=== PATIENT | female | born 1985 | race Caucasian/White ===

== ENCOUNTER 2022-12-12 15:25 | Inpatient (IN) | payer BC ==
--- OUTSIDE RECORDS SUMMARY | 2022-12-12 15:27 | XMS REPORT | Continuity of Care Document ---
:1985 Author Organization [facility] t Address [address] [place] [address] Care Team Providers Name Role Phone Unavailable Unavailable Unavailable Payers Payer Name Policy Type Policy Number Effective Date Expiration Date S ource Problems This patient has no known problems. Allergies, Adverse Reactions, Alerts Allergy Allergy Status Severity Reaction(s) Onset Inactive Treating Comm ents Source Name Type Date Date Clinician deedee SERRATO Active SV 2018-0 [facility] [place] Medications This patient has no known medications. Procedures This patient has no known procedures. Results Test Description Test Time Test Comments Results Result Comments Source [facility] 2019-05-17 TRIMESTER 08:10:00 RUN DATE: 05/17/19 [facility] PAGE 1 RUN TIME: 1829 Specimen Inquiry RUN USER: INTERFACE PAT IENT: JERMAIN MILES [facility] #: [id number] LOC: LAZARO #: [id number] AGE/SX: 34/F ROOM: [facility] RE05/10/19REG DR: Yessenia Cheema III, MD : 87 BED: A DIS: 05/13/19 STATUS: DIS IN TLOC: SPEC #: [id number] RECD: 05/10/19 STATUS: LESLY RAPHAEL #: [id number] FER: 05/10/19- SUBM DR: Yessenia Cheema III, MD ENTERED: 05/11/19 SP TYPE: PLACIII OTHR DR: ORDERED: LEVEL V SURGICA CODES: [id number] - PLACENTA, NOS PROCEDURES: LEVEL V SURGICA (Incomplete) TISSUES: PLACENTA, NOS - PLACENTA CLINICAL HISTORY 34 year old, 39.2 weeks, [id number], repeat section, complete placental previa (kr) FINAL DIAGNOSIS Placenta, srinivasan gestation: - term placenta - mild increase in perivillous fibrinoid - umbilical cord: paramarginal insertion, 3-vessel, 30 cm length - decreased placental weight: actual 370 gm/expected mean weight 519 gm (less than 10th percentile for gestational age) Tissue code: 1 CPT Code: 08040 cds/kr dt: 05/17/19 GROSS DESCRIPTION The specimen was received in a container, labeled with the patient's name, unit number and designated "placenta". The following attributes are observed: Cord insertion: 1 cm from margin Cord length: 30 cm Number of vessels: 3 Cord color: Murillo Other cord findings: Slightly edematous surface findings: Steel blue, wrinkled, glistening with focal subchorionic fibrin deposition Vasculature: Displays unremarkable blood vasculature Membranes rupture site: Marginal Membrane color: Murillo Other membrane findings: Thickened The trimmed placental weight: 370 gm CONTINUED ON NEXT PAGE RUN DATE: 05/17/19 [facility] PAGE 2 RUN TIME: 1829 Specimen Inquiry RUN USER: INTERFACE OMAR C #: [id number] PATIENT: JERMAIN MILES #[id number] (Continued)-------- -------- GROSS DESCRIPTION (Continued) Disk measurement: 15 x 15 x 3 cm in greatest dimension Accessory lobes: None Maternal surface: Lobulated and intact Parenchyma: Red, beefy, and spongy with peripheral fibrosis Parenchyma lesions: None Cassettes: A1 through A4 alyx/kr 05/11/19 @ 1237 MICROSCOPIC DESCRIPTION Villous architecture is late third trimester consistent with a term placenta. There is a mild increase in perivillous fibrinoid. kathya/kr dt: 05/17/19 --- Signed Juan Wheeler Frankie 05/17/19 0810 END OF REPORT HGB HCT 2019-05-11 09:25:00 Test Item Value Reference Range Interpretation Comme nts HEMOGLOBIN (test code = HGB) 8.7 g/dL 10.7-13.9 L Results verified by repeat analysis HEMATOCRIT (test code = HCT) 28.9 % 32.1-42.1 L CBC W/AUTO [id number] 08:54:00 Test Item Value Reference Range Interpretation Comments WHITE BLOOD CELL (test code = WBC) 9.0 K/mm3 6.6-12.1 N RED BLOOD CELL (test code = RBC) 4.72 M/mm3 3.45-5.01 N HEMOGLOBIN (test code = HGB) 10.9 g/dL 10.7-13.9 N HEMATOCRIT (test code = HCT) 35.3 % 32.1-42.1 N MEAN CELL VOLUME (test code = MCV) 75 fL 84.1-94.8 L MEAN CELL HGB (test code = MCH) 23.1 pg 27-35 L MEAN CELL HGB CONCETRATION (test 30.9 gm/dL 32.2-34.1 L code = MCHC) RED CELL DISTRIBUTION WIDTH (test 17.1 % 12.4-16.5 H code = RDW) PLATELET COUNT (test code = PLT) 204 K/mm3 133-385 N IMMATURE PLATELET FRACTION (test 0.0 % 0.0-10.8 N code = IPF) MEAN PLATELET VOLUME (test code = 11.2 fl 9.1-12.7 N MPV) NEUTROPHIL % (test code = NT%) 78.0 % 56.5-79.4 N LYMPHOCYTE % (test code = LY%) 13.2 % 14.3-34.3 L MONOCYTE % (test code = MO%) 6.3 % 5.1-10.4 N EOSINOPHIL % (test code = EO%) 1.5 % 0.1-3.0 N BASOPHIL % (test code = BA%) 0.3 % 0.1-1.0 N NEUTROPHIL # (test code = NT#) 7.1 K/mm3 LYMPHOCYTE # (test code = LY#) 1.2 K/mm3 MONOCYTE # (test code = MO#) 0.6 K/mm3 EOSINOPHIL # (test code = EO#) 0.14 K/mm3 BASOPHIL # (test code = BA#) 0.0 K/mm3 RBC MORPHOLOGY REQUIRED (test code NORMAL NORMAL = RBCM) PLATELET MORPHOLOGY REQUIRED (test NORMAL NORMAL code = PLTMR) AG HEPATITIS B [id number] 13:28:00 Test Item Value Reference Range Interpretation Comments AG HEPATITIS B SURFACE (test code NONREACTIVE NONREACTIVE = HBSAG) IS CONSENT FORM SIGNED FOR HIV TESTING? YAB HEPATITIS C [id number] 13:28:00 Test Item Value Reference Range Interpretation Comments AB HEPATITIS C (test code = NONREACTIVE NONREACTIVE HCVAB) SIGNAL TO CUTOFF (test code = 0.08 <0.80 N CUTOFF) IS CONSENT FORM SIGNED FOR HIV TESTING? YAB [id number] 13:28:00 Test Item Value Reference Range Interpretation Comments AB TREPONEMA (test code = TREPAB) NONREACTIVE NONREACTIVE IS CONSENT FORM SIGNED FOR HIV TESTING? YAB HIV 1 13:28:00 Test Item Value Reference Range Interpretation Comments AB HIV 1 2 (test NONREACTIVE NONREACTIVE Done by [facility] code = [id number]) 4th Gen HIV Ag/Ab Combo Screen IS CONSENT FORM SIGNED FOR HIV TESTING? YAG HEPATITIS B [id number] 13:10:00 Test Item Value Reference Range Interpretation Comments AG HEPATITIS B SURFACE (test code NONREACTIVE NONREACTIVE = HBSAG) IS CONSENT FORM SIGNED FOR HIV TESTING? YAB HEPATITIS C [id number] 13:10:00 Test Item Value Reference Range Interpretation Comments AB HEPATITIS C (test code = HCVAB) NONREACTIVE SIGNAL TO CUTOFF (test code = CUTOFF) <0.80 IS CONSENT FORM SIGNED FOR HIV TESTING? YAB [id number] 13:10:00 Test Item Value Reference Range Interpretation Comments AB TREPONEMA (test code = TREPAB) NONREACTIVE NONREACTIVE IS CONSENT FORM SIGNED FOR HIV TESTING? YAB HIV 1 13:10:00 Test Item Value Reference Range Interpretation Comments AB HIV 1 2 (test code = [id number]) NONREACTIVE IS CONSENT FORM SIGNED FOR HIV TESTING? YURINALYSIS W/O [id number] 12:20:00 Test Item Value Reference Range Interpretation Comments UA GLUCOSE DIPSTICK (test code = NEGATIVE NEGATIVE DGLUU) UA KETONE DIPSTICK (test code = NEGATIVE NEGATIVE KETU) UA PROTEIN DIPSTICK (test code = NEGATIVE NEGATIVE PROU) IS NURSE PERFORMING TEST? NCBC W/AUTO [id number] 12:12:00 Test Item Value Reference Range Interpretation Comments WHITE BLOOD CELL (test code = WBC) 8.9 K/mm3 6.6-12.1 N RED BLOOD CELL (test code = RBC) 4.73 M/mm3 3.45-5.01 N HEMOGLOBIN (test code = HGB) 11.1 g/dL 10.7-13.9 N HEMATOCRIT (test code = HCT) 35.7 % 32.1-42.1 N MEAN CELL VOLUME (test code = MCV) 76 fL 84.1-94.8 L MEAN CELL HGB (test code = MCH) 23.5 pg 27-35 L MEAN CELL HGB CONCETRATION (test 31.1 gm/dL 32.2-34.1 L code = MCHC) RED CELL DISTRIBUTION WIDTH (test 17.0 % 12.4-16.5 H code = RDW) PLATELET COUNT (test code = PLT) 201 K/mm3 133-385 N IMMATURE PLATELET FRACTION (test 0.0 % 0.0-10.8 N code = IPF) MEAN PLATELET VOLUME (test code = 10.8 fl 9.1-12.7 N MPV) NEUTROPHIL % (test code = NT%) 76.4 % 56.5-79.4 N LYMPHOCYTE % (test code = LY%) 14.7 % 14.3-34.3 N MONOCYTE % (test code = MO%) 6.5 % 5.1-10.4 N EOSINOPHIL % (test code = EO%) 1.2 % 0.1-3.0 N BASOPHIL % (test code = BA%) 0.4 % 0.1-1.0 N NEUTROPHIL # (test code = NT#) 6.8 K/mm3 LYMPHOCYTE # (test code = LY#) 1.3 K/mm3 MONOCYTE # (test code = MO#) 0.6 K/mm3 EOSINOPHIL # (test code = EO#) 0.11 K/mm3 BASOPHIL # (test code = BA#) 0.0 K/mm3 RBC MORPHOLOGY REQUIRED (test code NORMAL NORMAL = RBCM) PLATELET MORPHOLOGY REQUIRED (test NORMAL NORMAL code = PLTMR) - US PREG UT [id number] 10:11:00 Patient Name: JERMAIN MILES Unit No: [id number] EXAMS: CPT CODE: [id number] US PREG UT TRANSVAGINAL [address] [facility] [address], [place] [address] LIMITED OBSTETRICAL ULTRASOUND REPORT Pat. Name: JERMAIN MILES Pat. No: [id number] Study Date: 03/25/2019 9:18am , Age: 04 1985, 33 Pregnancies: 3, Para 2 LMP: 08/15/2018 GA by LMP: 31w5d GA by 1st: 32w5d GA Selected: 32w5d (From Known E) VANESSA: 05/15/2019 Referring MD: Yessenia Cheema Steward Racetrack: Brenda Crawford RDMS CPT4: USPRUTTRVG Admitting MD: Yessenia Cheema Hist/Ind: COMPLETE PREVIA SCAN 3 Cervical Length: 4.8 cm Heart Rate: 131 bpm Amniotic Fluid Index: 13.7cm (08.4-24.4) Q1: 2.0cm Q2: 3.7cm Q3: 4.4cm Q4: 3.7cm MATERNAL ANATOMY Fibroids LxHxW (cm) 1: 2.3 x 1.2 x 2.3 Loc: Anterior Desc: Subserosal Ovaries LxHxW (cm) Right 2.9 x 1.5 x 1.6 Vol: 3.6cc Left 2.8 x1.4 x 1.6 Vol: 3.3cc --------- CLINICAL SUMMARY Type of Gestation: Srinivasan Intrauterine in vertex presentation. motion and organs seen: heart motion seen somatic activity observed body and limb movements seen Regular cardiac rhythm observed Placental location: Posterior Anterior Right lateral Placental maturity : Grade 2 There is COMPLETE (LOWER EDGE WITH VESSELS NOTED) placenta previa. Amniotic fluid volume is normal. Uterus and adnexa: Fibroid seen [facility] NAME: JERMAIN MILES Radiology Department PHYS: Yessenia Sarmiento III, MD [address] : 1985 AGE: 34 SEX: [place] [address] LOC: JorgeRAD PHONE #: [phone] EXAM DATE: 03/25/2019 STATUS: DEP CLI FAX #: [phone] RAD NO: Page 1 Signed Report (CONTINUED) Patient Name: JERMAIN MILES Unit No: [id number] EXAMS: CPT CODE: [id number] US PREG UT TRANSVAGINAL [address]82 (Continued) Thank you for allowing us to participate in the care of this patient. Tone Fiore M.D. Electronic Signature 03/25/2019 10:11am at 1011 Reported and signed by: Lorena Fiore MD CC: Yessenia Cheema III, MD Technologist: Brenda Crawford, [facility] Probe: [id number] Trnscrbd D/ (1011) Oleg Orig Print D/T: S: 03/31/2019 (1306) [facility] NAME: JUDIE MILESA Radiology Department PHYS: Yessenia Sarmiento III, MD [address] : 1985 AGE: 34 SEX: [place] [address] LOC: JorgeRAD PHONE #: [phone] EXAM DATE: 03/25/2019 STATUS: DEP CLI FAX #: [phone] RAD NO: Page 2 Signed Report Patient Name: JERMAIN MILES Unit No: [id number] EXAMS: CPT CODE: [id number] US PREG UT TRANSVAGINAL [address] (Continued) [facility] NAME: JULIETAJERMAIN Hammond Radiology Department PHYS: Yesesnia Sarmiento IIIPA [address] : 1985 AGE: 34 SEX: [place], [place] [address] LOC: JorgeRAD PHONE #: [phone] EXAM DATE: 03/25/2019 STATUS: DEP CLI FAX #: [phone] RAD NO: Page 3 SignedReport- US [id number] 10:11:00 Patient Name: JERMAIN MILES Unit No: [id number] EXAMS: CPT CODE: [id number] [place] L[place] [address] [facility] [address] [place], [place] [address] LIMITED OBSTETRICAL ULTRASOUND REPORT ------ Pat. Name: JERMAIN MILES Pat. No: [id number] Study Date: 03/25/2019 9:18am , Age: 04 1985, 33 Pregnancies: 3, Para 2 LMP:08/15/2018 GA by LMP: 31w5d GA by 1st: 32w5d GA Selected: 32w5d (From Known E) VANESSA: 05/15/2019 Referring MD: Yessenia Cheema Steward [employer]etr[employer]: Brenda Crawford RDMS CPT4: USPREGLTD Admitting MD: Yessenia Cheema Hist/Ind: COMPLETE PREVIA SCAN 3 Cervical Length: 4.8 cm Heart Rate: 131 bpm Amniotic Fluid Index: 13.7cm (08.4- 24.4) Q1: 2.0cm Q2: 3.7cm Q3: 4.4cm Q4: 3.7cm MATERNAL ANATOMY Fibroids LxHxW (cm) 1: 2.3 x 1.2 x 2.3 Loc: Anterior Desc: Subserosal Ovaries LxHxW (cm) Right 2.9 x 1.5 x 1.6 Vol: 3.6cc Left 2.8 x 1.4 x 1.6 Vol: 3.3cc CLINICAL SUMMARY Type of Gestation: Srinivasan Intrauterine in vertex presentation. motion and organs seen: heart motion seen somatic activity observed body and limb movements seen Regular cardiac rhythm observed Placental location: Posterior Anterior Right lateral Placental maturity : Grade 2 There is COMPLETE (LOWER EDGE WITH VESSELS NOTED) placenta previa. Amniotic fluid volume is normal. Uterus and adnexa: Fibroid seen [facility] NAME: JULIETAStephanyJERMAIN Radiology Department PHYS: Yessenia Sarmiento III, MD [address] : 1985 AGE: 34 SEX: [place] [address] LOC: Anamaria.RAD PHONE #: [phone] EXAM DATE: 03/25/2019 STATUS: REG CLI FAX #: [phone] RAD NO: Page 1 Signed Report (CONTINUED) Patient Name: JERMAIN MILES Unit No: [id number] EXAMS: CPT CODE: [id number] [place] L[place] [address] (Continued) Thank you for allowing us to participate in the care of this patient. Tone Fiore M.D. Electronic Signature 03/25/2019 10:11am at 1011 Reported and signed by: Lorena Fiore MD CC: Yessenia Cheema III, MD Technologist: Brenda Crawford RDMS Probe: Trnscrbd D/ (1011)[email or web address] Orig Print D/T: S: 03/25/2019 (1011) [facility] NAME: JERMAIN MILES Radiology Department PHYS: Yessenia Sarmiento III, MD [address] : 1985 AGE: 34 SEX: F [place], [place] [address] LOC: Anam[place].RAD PHONE #: [phone] EXAM DATE: 03/25/2019 STATUS: REG CLI FAX #: [phone] RAD NO: Page 2 Signed Report Patient Name: JERMAIN MILES Unit No: [id number] EXAMS: CPT CODE: [id number] [place] LTD [address] (Continued) [facility] NAME: JERMAIN MILES Radiology Department PHYS: Yessenia Sarmiento III, MD [address] : 1985 AGE: 34 SEX: [place], [place] [address] LOC: EVARISTO PHONE #: [phone] EXAM DATE: 03/25/2019 STATUS: NEHA MCALLISTER FAX #: [phone] RAD NO: Page 3 Signed Report- US PREG UT [id number] 12:22:00 Patient Name: JERMAIN MILES Unit No: [id number] EXAMS: CPT CODE: [id number] US PREG UT [id number] [facility] [address] [place], [place] [address] LIMITED OBSTETRICAL ULTRASOUND REPORT Pat. Name: JERMAIN MILES Pat. No: [id number] Study Date: 02/17/2019 11:17am , Age: 04 1985, 33 Pregnancies: 3, Para 2 LMP: 08/15/2018 GA by LMP: 26w4d GA by 1st: 27w4d GA Selected: 27w4d (From First S) VANESSA: 05/15/2019 Referring MD: Yessenia Cheema Steward Racetrack: Deena Madrigal RDMS CPT4: USPRUTTRVG Admitting MD: Yessenia Cheema Hist/Ind: Scan 2: FU placenta previa Cervical Length: 3.9 cm Heart Rate: 133 bpm Amniotic Fluid Index: 18.1cm (09.4- 22.7) Q1: 4.8cm Q2: 5.5cm Q3: 2.1cm Q4: 5.7cm MATERNAL ANATOMY Fibroids LxHxW (cm) 1: 2.1 x 1.3 x 1.9 Loc: ANT SS Ovaries LxHxW (cm) Right 2.8 x 2.1 x 2.9 Vol: 8.9cc Left 3.3 x 1.7 x 2.3 Vol: 6.8cc CLINICAL SUMMARY Type of Gestation: Srinivasan Intrauterine in transverse presentation. motion and organs seen: heart motion seen body and limb movements observed Placental location: Posterior Anterior Right lateral Placentalmaturity : Grade 1 There is COMPLETE placenta previa. Amniotic fluid volume is normal. Uterus and adnexa: No significant abnormalities seen RECOMMEND REPEAT SCAN AT 30-32 WEEKS FOR PLACENTA LOCATION. Thank you for allowing us to participate in the care of this patient. Jethro Baig M.D. [facility] NAME: JERMAIN MILES Radiology Department PHYS: Yessenia Sarmiento III, MD [address] : 1985 AGE: 33 SEX: [place] [address] LOC: JorgeRAD PHONE #: [phone] EXAM DATE: 02/17/2019 STATUS: DEP CLI FAX #: [phone] RAD NO: Page 1 Signed Report (CONTINUED) Patient Name: JERMAIN MILES Unit No: [id number] EXAMS: CPT CODE: [id number] US PREG UT TRANSVAGINAL [address]28 (Continued) Electronic Signature 02/17/2019 12:22pm at 1222 Reported and signed by: Jethro Baig MD CC: Yessenia Cheema III, MD Technologist: Deena Madrigal, [facility] Probe: [id number] Trnscrbd D/ (1222) [email or web address] Orig Print D/T: S: 02/19/2019 (1553) [facility] NAME: JUDIE MILESA Radiology Department PHYS: Yessenia Sarmiento III, MD [address] : 1985 AGE: 33 SEX: [place] [address] LOC: JorgeRAD PHONE #: [phone] EXAM DATE: 02/17/2019 STATUS: DEP CLI FAX #: [phone] RAD NO: Page 2 Signed Report Patient Name: JERMAIN MILES Unit No: [id number] EXAMS: CPT CODE: [id number] US PREG UT TRANSVAGINAL [address]201 (Continued) [facility] NAME: JERMAIN MILES Radiology Department PHYS: Yessenia Sarmiento III, MD [address] : 1985 AGE: 33 SEX: [place] [address] LOC: F.RAD PHONE #: [phone] EXAM DATE: 02/17/2019 STATUS: RIZWAN MCALLISTER FAX #: [phone] RAD NO: Page 3 Signed Report- US [id number] 12:22:00 Patient Name: JERMAIN MILES Unit No: [id number] EXAMS: CPT CODE: [id number] [place] L[place] [address] [facility] [address], [place] [address] LIMITED OBSTETRICAL ULTRASOUND REPORT ---- Pat. Name: JERMAIN MILES Pat. No: [id number] Study Date: 02/17/2019 11:17am , Age: 04 1985, 33 Pregnancies: 3, Para 2 LMP: 08/15/2018 GA by LMP: 26w4d GA by 1st: 27w4d GA Selected: 27w4d (From First S) VANESSA: 05/15/2019 Referring MD: Yessenia Cheema Steward Racetrack: Deena Madrigal RDMS CPT4: USPREGLTD Admitting MD: Inocencio Cheema Hist/Ind: Scan 2: FU placenta previa Cervical Length: 3.9 cm Heart Rate: 133 bpm Amniotic Fluid Index: 18.1cm (09.4- 22.7) Q1: 4.8cm Q2: 5.5cm Q3: 2.1cm Q4: 5.7cm MATERNAL ANATOMY Fibroids LxHxW (cm) 1: 2.1 x 1.3 x 1.9 Loc: ANT SS Ovaries LxHxW (cm) Right 2.8 x 2.1 x 2.9 Vol: 8.9cc Left 3.3 x 1.7 x 2.3 Vol: 6.8cc CLINICAL SUMMARY Type of Gestation: Srinivasan Intrauterine in transverse presentation. motion and organs seen: heart motion seen body and limb movements observed Placental location: Posterior Anterior Right lateral Placental maturity: Grade 1 There is COMPLETE placenta previa. Amniotic fluid volume is normal. Uterus and adnexa: No significant abnormalities seen RECOMMEND REPEAT SCAN AT 30-32 WEEKS FOR PLACENTA LOCATION. Thank you for allowing us to participate in the care of this patient. Jehtro Baig M.D. [facility] NAME: JERMAIN MILES Radiology Department PHYS: Yessenia Sarmiento III, MD [address] : 1985 AGE: 33 SEX: [place] [address] LOC: JorgeRAD PHONE #: [phone] EXAM DATE: 02/17/2019 STATUS: REG CLI FAX #: [phone] RAD NO: Page 1 Signed Report (CONTINUED) Patient Name: JERMAIN MILES Unit No: [id number] EXAMS: CPT CODE: [id number] [place] LTD [address]95 (Continued) Electronic Signature 02/17/2019 12:22pm at 1222 Reported and signed by: Jethro Baig MD CC: Yessenia Cheema III, MD Technologist: Deena Madrigal, RODRIGUEZ Probe: Trnscrbd D/ (1222) [email or web address] Orig Print D/T: S: 02/17/2019 (1222) [facility] NAME: GINGERJERMAIN Radiology Department PHYS: Yessenia Sarmiento III, MD [address] : 1985 AGE: 33 SEX: [place] [address] LOC: JorgeRAD PHONE #: [phone] EXAM DATE: 02/17/2019 STATUS: REG CLI FAX #: [phone] RAD NO: Page 2 Signed Report Patient Name: JERMAIN MILES Unit No: [id number] EXAMS: CPT CODE: [id number] [place] LTD [address] (Continued) [facility] NAME: JERMAIN MILES Radiology Department PHYS: Yessenia Sarmiento III, MD [address] : 1985 AGE: 33 SEX: [place] [address] LOC: JorgeRAD PHONE #: [phone] EXAM DATE: 02/17/2019 STATUS: REG CLI FAX #: [phone] RAD NO: Page 3 Signed Report- US PREG UT TRANSVAGINAL 2018-12-31 12:11:00 Patient Name: JERMAIN MILES Unit No: [id number] EXAMS: CPT CODE: [id number] US PREG UT [id number] [facility] [address] [place], [place] [address] OBSTETRICAL ULTRASOUND REPORT ----- Pat. Name: JERMAIN MILES Pat. No:[id number] Study Date: 12/31/2018 10:57am , Age: 04 1985, 33 Pregnancies: 3, Para 2 LMP: 08/15/2018 GA by LMP: 19w5d GA by US: 20w3d GA Selected: 20w5d (From Known E) VANESSA: 05/15/2019 Referring MD: Yessenia Cheema Steward Racetrack: Isabell Gutierrez RDMS, RVT CPT4: USPRUTTRVG Hist/Ind: ANATOMY SCAN 1 MEASUREMENTS AGE GROWTH EVALUATION Measurement GA Range Srce %for GA Ratios ----- ---- ------- BPD 4.8 cm 20w4d (85i8k-36q8c) Hadl BPD 44% FL/BPD 0.60 HC 17.2 cm 19w5d (18w0d- 21w2d) Hadl HC 21% FL/AC 0.19 APD 4.9 cm APD HC/AC 1.12 (1.06 - 1.24) TAD 4.9 cm TAD CI 0.85 (0.70 - 0.86) AC 15.4 cm 20w2d (27n0v-65l8s) Hadl AC 41% FL 2.9 cm 18w4d (46j3s-06c4e) Hadl FL <05 HL 2.8 cm 19w0d (73n8k-24q9t) Chato HL 22% GA for sonogram 20w3d (85s3f-18i2u) Weight Estimate: based on (BPD,AC) Hadlock Weight: 316 gm (270-362) Hadlock : 0lbs, 11oz Cervical Length: 4.4 cm Fe maddie Heart Rate: 145 bpm MATERNAL ANATOMY Ovaries LxHxW (cm)Right 2.9 x 1.6 x 2.5 Vol: 6.1cc Left 3.3 x 1.7 x 2.8 Vol: 8.2cc CLINICAL SUMMARY Type of Gestation: Srinivasan Intrauterine in variable presentation. size is appropriate for gestational age by weight. motion and organs seen: heart motion seen somatic activity observed body and limb movements seen Four chamber heartobserved Left ventricular outflow tract (LVOT) seen Right ventricular outflow tract (RVOT) seen [facility] NAME: JERMAIN MILES Radiology Department PHYS: Yessenia Sarmiento III, MD[address] : 1985 AGE: 33 SEX: F [place], [place] [address] LOC: JorgeRAD PHONE #: [phone] EXAM DATE: 12/31/2018 STATUS: DEP CLI FAX #: [phone] RAD NO: Page 1 Signed Rep ort (CONTINUED) Patient Name: JERMAIN MILES Unit No: [id number] EXAMS: CPT CODE: [id number] US PREG UT TRANSVAGINAL 30531 (Continued) Normal intracranial anatomy seen Umbilical cord insertion in fetus seen stomach, Renal Fossa, Bladder and Spine seen spine not optimally seen. Three vessel umbilical cord noted Placental location: Posterior Right lateral Placental maturity : Grade 2 There is COMPLETE placenta previa. Amniotic fluid volume is normal. Uterus and adnexa: No significant abnormalities seen Thank you for allowing us to participate in the care of this patient. Uriel Nair M.D. Electronic Signature 12/31/2018 12:11pm at 1211 Reported and signed by: Uriel Nair MD CC: Yessenia Cheema III, MD Technologist: Isabell Gutierrez RDMS, RVT Probe: [id number] Trnscrbd D/ (1211) [email or web address] Orig Print D/T: S: 01/06/2019 (1540) [facility] NAME: DIONJERMAIN DONOVAN Radiology Department PHYS: Yessenia Sarmiento III, MD [address] : 1985 AGE: 33 SEX: F [place], [place] [address] LOC: JorgeRAD PHONE #: [phone] EXAM DATE: 12/31/2018 STATUS: RIZWAN CLI FAX #: [phone] RAD NO: Page 2 Signed Report Patient Name: JERMAIN MILES Unit No: [id number] EXAMS: CPT CODE: [id number] US PREG UT TRANSVAGINAL 95267 (Continued) [facility] NAME: JERMAIN MILES Radiology Department PHYS: Yessenia Sarmiento III, MD [address] : 1985 AGE: 33 SEX: F [place], [place] [address] LOC: F.RAD PHONE #: [phone] EXAM DATE: 12/31/2018 STATUS: RIZWAN CLI FAX #: [phone] RAD NO: Page 3 Signed Report- US PREG AFTER [id number] 12:11:00 Patient Name: JERMAIN MILES Unit No: [id number] EXAMS: CPT CODE: [id number] US PREG AFTER TRI [id number] [facility] [address], [place] [address] OBSTETRICAL ULTRASOUND REPORT --------- Pat. Name: JERMAIN MILES Pat. No: [id number] Study Date: 12/31/2018 10:57am , Age: 04 1985, 33 Pregnancies: 3, Para 2 LMP: 08/15/2018 GA by LMP: 19w5d GA by US: 20w3d GA Selected: 20w5d (From Known E) VANESSA: 05/15/2019 Referring MD: YESSENIA CHEEMA Steward [employer]: Isabell Gutierrez RDMS, RVT CPT4: [id number] Admitting MD: YESSENIA CHEEMA MHist/Ind: ANATOMY SCAN 1 MEASU REMENTS AGE GROWTH EVALUATION Measurement GA Range Srce %for GA Ratios ---- ------- BPD 4.8 cm 20w4d (93r3n-75o4u) Hadl BPD 44% FL/BPD 0.60 HC 17.2 cm 19w5d (18w0d- 21w2d) Hadl HC 21% FL/AC 0.19 APD 4.9 cm APD HC/AC 1.12 (1.06 - 1.24) TAD 4.9 cm TAD CI 0.85 (0.70 - 0.86) AC 15.4 cm 20w2d (22p8d-57c9y) Hadl AC 41% FL 2.9 cm 18w4d (74q4p-70m4y) Hadl FL <05 HL 2.8 cm 19w0d (77h2q-66c3n) Chato HL 22% GA for sonogram 20w3d (85e8d-83p5f) Weight Estimate: based on (BPD,AC) Hadlock Weight: 316 gm (270-362) Hadlock : 0lbs, 11oz Cervical Length: 4.4 cm Heart Rate: 145 bpm MATERNAL ANATOMY Ovaries LxHxW (cm) Right 2.9 x 1.6 x 2.5 Vol: 6.1cc Left 3.3 x 1.7 x 2.8 Vol: 8.2cc CLINICAL SUMMARY Type of Gestation: Srinivasan Intrauterine in variable presentation. size is appropriate for gestational age by weight. 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 Three vessel umbilical cord noted Placental location: Posterior Right lateral Placental maturity : Grade 2 There is COMPLETE placenta previa. Amniotic fluid volume is normal. Uterus and adnexa: No significant abnormalities seen Thank you for allowing us to participate in the care of this patient. Uriel Nair M.D. Electronic Signature 12/31/2018 12:11pm Electronically Sig nilsa by Uriel Nair MD on 12/31/2018 at 1211 Reported and signed by: Uriel Nair MD CC: Yessenia Cheema III, MD Technologist: Isabell Gutierrez RDMS, RVT Probe: Trnscrbd D/ (1211) [email or web address] Orig Print D/T: S: 12/31/2018 (1211) [facility] NAME: JERMAIN MILES Radiology Department PHYS: Yessenia Sarmiento III, MD [address] : 1985 AGE: 33 SEX: [place] [address] LOC: JorgeRAD PHONE #: [phone] EXAM DATE: 12/31/2018 STATUS: REG CLI FAX #: [phone] RAD NO: Page 2 Signed Report Patient Name: DIONJERMAIN DONOVAN Unit No: [id number] EXAMS: CPT CODE: [id number] US PREG AFTER 1ST TRI 41721 (Continued) [facility] NAME: JERMAIN LUNA Radiology Department PHYS: Yessenia Sarmiento III, MD [address] : 1985 AGE:33 SEX: [place] [address] LOC: [place].RAD PHONE #: [phone] EXAM DATE: 12/31/2018 STATUS: REG CLI FAX #: [phone] RAD NO: Page 3 Signed Report
[2022-12-12 16:28] LABS: Absolute Lymphocytes (CBC) 1.1 K/uL (0.7-4.9); Hematocrit 40.5 % (36.0-45.0); Lymphocytes % 8.3 % (15.3-44.8); MCV 82.7 fL (80-100); MPV 8.7 fL (7.6-11.3)
[2022-12-12] MEDS ORDERED: VANCOMYCIN 1 GM/VIAL ONE (16:34)
[2022-12-12] MEDS ORDERED: NA CHLORIDE 0.9% 250 ML ONE (16:34)
[2022-12-12 16:41] LABS: Bilirubin Total 1.1 mg/dL (0.2-1.0); Potassium 3.5 mmol/L (3.5-5.1); Protein, Total 8.4 g/dL (6.4-8.2)
[2022-12-12] MEDS ORDERED: MORPHINE 4 MG/ML SYR ONE ×2 (16:54→18:35)
[2022-12-12 17:02] LABS: Protime INR 1.07
[2022-12-12 17:05] LABS: SARS-CoV-2 Antigen Rapid Res Negative (Negative)
[2022-12-12] MEDS ORDERED: NA CHLORIDE 0.9% 100 ML ONE (17:14)
[2022-12-12] MEDS ORDERED: PIPERACIL/TAZO 3.375 GM VIAL IV ONE (17:15)
--- NOTE | 2022-12-12 17:28 | EDPHYS ---
Physician Documentation [facility] Name: Denise Conroy Age: 37 yrs Sex: Female : 1985 Arrival Date: 12/12/2022 Time: 15:26 Bed 14 Private MD: Meng Corcoran Frank ED Physician Wilder Escobar HPI: 12/12 16:51 This 37 yrs old Female presents to ER via Ambulatory with complaints of Abscess. ms3 16:51 37-year-old female with no past medical history presents for right buttock abscess that ms3 began on Friday. Patient states she was seen from Dr Gorman's office for abscess Patient rates her pain a /. Patient denies alleviating or inciting factors. Patient denies fevers, chills, nausea, vomiting. Historical: - Allergies: 15:36 pine nuts; ll1 - PMHx: 15:36 None; ll1 - PSHx: 15:36 section; lumbar fusion; Cholecystectomy; R ACL replaced; ll1 - Immunization history:: Client reports having NOT received the Covid vaccine. - Social history:: Smoking status: Patient denies any tobacco usage or history of. ROS: 16:51 Constitutional: Negative for fever, and chills. Neck: Negative for injury, pain, and ms3 swelling, Cardiovascular: Negative for chest pain, and palpitations. Respiratory: Negative for shortness of breath, cough, wheezing, and pleuritic chest pain, Abdomen/GI: Negative for abdominal pain, nausea, vomiting, diarrhea, and constipation, Back: Negative for injury and pain. 16:51 Skin: Positive for cellulitis, abscess. Exam: 16:55 Constitutional: This is a well developed, well nourished patient who is awake, alert, ms3 and in no acute distress. Head/Face: Normocephalic, atraumatic. Neck: Trachea midline, no cervical lymphadenopathy. Supple, full range of motion without nuchal rigidity, or vertebral point tenderness. No Meningismus. Chest/axilla: Normal chest wall appearance and motion. Nontender with no deformity. Cardiovascular: Regular rate and rhythm with a normal S1 and S2. No gallops, murmurs, or rubs. Normal PMI, no JVD. No pulse deficits. Respiratory: Lungs have equal breath sounds bilaterally, clear to auscultation and percussion. No rales, rhonchi or wheezes noted. No increased work of breathing, no retractions or nasal flaring. Abdomen/GI: Soft, non-tender, with normal bowel sounds. No distension or tympany. No guarding or rebound. No evidence of tenderness throughout. 16:55 MS/ Extremity: Pulses equal, no cyanosis. Neurovascular intact. Full, normal range of motion. 16:55 : Right buttock abscess, aproximately 6 cm x 8 cm with overlying cellulitis.. 17:52 ECG was reviewed by the Attending Physician. ms3 Vital Signs: 15:36 BP 129 / 90; Pulse 107; Resp 18; Temp 98.6(O); Pulse Ox 100% on R/A; Weight 63.5 kg; ll1 Height 5 ft. 0 in. (152.40 cm); Pain 10/10; 16:30 BP 125 / 78; Pulse 95; Resp 16; Pulse Ox 100% on R/A; eh3 19:00 BP 114 / 78; Pulse 104; Resp 18; Pulse Ox 100% on R/A; jb4 20:19 BP 108 / 68; Pulse 100; Resp 18; Pulse Ox 99% ; jb4 21:42 BP 105 / 67; Pulse 104; Resp 16; Pulse Ox 99% on R/A; jb4 15:36 Body Mass Index 27.34 (63.50 kg, 152.40 cm) ll1 MDM: 15:49 Patient medically screened. ms3 16:55 Differential diagnosis: abscess, cellulitis, sepsis. Data reviewed: vital signs, nurses ms3 notes, lab test result(s), and as a result, I will admit patient. Consideration of Admission/Observation Patient was admitted/placed on observation. 17:25 I considered the following discharge prescriptions or medication management in the ms3 emergency department Medications were administered in the Emergency Department. See MAR. Independent interpretation of the following test(s) in the Emergency Department observation nurse: rate is 108 beats/min, Rhythm is sinus tachycardia, with no ectopy, Interpretation: normal rhythm, tachycardia. Counseling: I had a detailed discussion with the patient and/or guardian regarding: the historical points, exam findings, and any diagnostic results supporting the discharge/admit diagnosis, lab results, radiology results, the need for further work-up and treatment in the hospital. ED course: Discussed case with Dr Corcoran and he accepts patient as inpatient admission.. 12/12 15:50 Order name: Blood Culture Adult (2) ms3 12/12 15:50 Order name: CBC with Diff; Complete Time: 16:49 ms3 12/12 15:50 Order name: CMP; Complete Time: 16:49 ms3 12/12 15:50 Order name: Lactate w/ 2H reflex if indic.; Complete Time: 17:24 ms3 12/12 15:50 Order name: Protime (+inr); Complete Time: 17:24 ms3 12/12 15:50 Order name: Ptt, Activated; Complete Time: 17:24 ms3 12/12 16:05 Order name: SARS RAPID; Complete Time: 17:24 ss 12/12 16:35 Order name: Glucose, Ancillary Testing; Complete Time: 16:49 EDMS 12/12 17:34 Order name: Basic Metabolic Panel EDMS 12/12 17:34 Order name: Basic Metabolic Panel EDMS 12/12 17:34 Order name: CBC with Automated Diff EDMS 12/12 17:34 Order name: CBC with Automated Diff EDMS 12/12 15:50 Order name: EKG; Complete Time: 15:51 ms3 12/12 15:50 Order name: Accucheck; Complete Time: 16:25 ms3 12/12 15:50 Order name: Cardiac monitoring; Complete Time: 16:33 ms3 12/12 15:50 Order name: EKG - Nurse/Tech; Complete Time: 16:33 ms3 12/12 15:50 Order name: IV Saline Lock - Large Bore; Complete Time: 16:33 ms3 12/12 15:50 Order name: Labs collected and sent; Complete Time: 16:33 ms3 12/12 15:50 Order name: O2 Per Protocol; Complete Time: 16:33 ms3 12/12 15:50 Order name: O2 Sat Monitoring; Complete Time: 16:33 ms3 12/12 15:50 Order name: Vital Signs; Complete Time: 16:33 ms3 12/12 17:34 Order name: NPO EDMS 12/12 17:34 Order name: Regular EDMS EC:52 Rate is 100 beats/min. Rhythm is regular. QRS Dickinson is Normal. NM interval is normal. ms3 QRS interval is normal. QT interval is normal. Clinical impression: Sinus tachycardia. Interpreted by me. Reviewed by me. Administered Medications: 16:55 Drug: vancoMYCIN 1 grams Route: IVPB; Infused Over: 2 hrs; Site: right antecubital; 3 16:55 Drug: morphine 4 mg Route: IVP; Infused Over: 4 mins; Site: right antecubital; 3 17:22 Follow up: Response: Pain is decreased [facility] 17:22 Drug: Zosyn (piperacillin-tazobactam) 3.375 grams Route: IVPB; Infused Over: 60 mins; 3 Site: right antecubital; 18:30 Drug: NS 0.9% 1000 ml Route: IV; Rate: 125 ml/hr; Site: right antecubital; 3 Disposition Summary: 12/12/22 17:26 Hospitalization Ordered Hospitalization Status: Inpatient Admission ms3 Provider: Dale Corcoran ms3 Location: Telemetry/MedSur (Inpatient) ms3 Condition: Stable ms3 Problem: new ms3 Symptoms: are unchanged ms3 Bed/Room Type: Standard ms3 Room Assignment: 419(12/12/22 21:36) cg Diagnosis - Cutaneous abscess of buttock ms3 - Sepsis without end organ dysfunction ms3 Forms: - Medication Reconciliation Form ms3 - SBAR form ms3 Signatures: Dispatcher [employer] Gely Costello RN ANGELIKA Aditya Delaney RN RN 1 Wilder Escobar DO DO ms3 Jocelyn Reid RN RN 3 Corrections: (The following items were deleted from the chart) 21:35 17:26 ms3 cg 21:36 21:35 418 cg
--- NOTE | 2022-12-12 17:28 | ER ---
Nurse's Notes [facility] Name: Denise Conroy Age: 37 yrs Sex: Female : 1985 Arrival Date: 12/12/2022 Time: 15:26 Bed 14 Private MD: Dale Corcoran; Ross Sinha Diagnosis: Cutaneous abscess of buttock;Sepsis without end organ dysfunction Presentation: 12/12 15:36 Chief complaint: Patient states: Abscess to R buttocks area for 1 week, getting ll1 progressively worse daily. No drainage at this time. Sent in for eval by clothing sorter MD. Coronavirus screen: Vaccine status: Patient reports being unvaccinated. Client denies travel out of the [place] in the last 14 days. At this time, the client does not indicate any symptoms associated with coronavirus-19. Ebola Screen: Patient denies travel to an Ebola-affected area in the 21 days before illness onset. Initial Sepsis Screen: Does the patient meet any 2 criteria? HR > 90 bpm. No. Patient's initial sepsis screen is negative. Does the patient have a suspected source of infection? Yes: Skin breakdown/wound. Risk Assessment: Do you want to hurt yourself or someone else? Patient reports no desire to harm self or others. Onset of symptoms was December 05, 2022. 15:36 Method Of Arrival: Ambulatory ll1 15:36 Acuity: TIRSO 3 ll1 Triage Assessment: 07:00 General: Appears in no apparent distress. comfortable, Behavior is calm, cooperative. db Pain: Complains of pain in groin. Historical: - Allergies: 15:36 pine nuts; ll1 - PMHx: 15:36 None; ll1 - PSHx: 15:36 section; lumbar fusion; Cholecystectomy; R ACL replaced; ll1 - Immunization history:: Client reports having NOT received the Covid vaccine. - Social history:: Smoking status: Patient denies any tobacco usage or history of. Screenin:45 [facility] ED Fall Risk Assessment (Adult) History of falling in the last 3 months, 3 including since admission No falls in past 3 months (0 pts) Confusion or Disorientation No (0 pts) Intoxicated or Sedated No (0 pts) Impaired Gait No (0 pts) Mobility Assist Device Used No (0 pt) Altered Elimination No (0 pt) Score/Fall Risk Level 0 - 2 = Low Risk. Abuse screen: Denies threats or abuse. Denies injuries from another. Nutritional screening: No deficits noted. Tuberculosis screening: No symptoms or risk factors identified. Assessment: 16:19 Reassessment: Patient appears in no apparent distress at this time. Patient and/or db family updated on plan of care and expected duration. Pain level reassessed. Patient is alert, oriented x 3, equal unlabored respirations, skin warm/dry/pink. states has right vaginal abscess since FridayDec 06. Patient states started has dime size and gradually got bigger. General: Appears in no apparent distress. comfortable, Behavior is calm, cooperative. Pain: Complains of pain in groin. Neuro: No deficits noted. Level of Consciousness is awake, alert, obeys commands, Oriented to person, place, time. Respiratory: Airway is patent Respiratory effort is even, unlabored, Respiratory pattern is regular, symmetrical. 19:10 Reassessment: Patient appears in no apparent distress at this time. Patient and/or jb4 family updated on plan of care and expected duration. Pain level reassessed. Patient is alert, oriented x 3, equal unlabored respirations, skin warm/dry/pink. Patient states feeling better. 20:19 Reassessment: Patient appears in no apparent distress at this time. Patient and/or jb4 family updated on plan of care and expected duration. Pain level reassessed. Patient is alert, oriented x 3, equal unlabored respirations, skin warm/dry/pink. 21:42 Reassessment: Patient appears in no apparent distress at this time. Patient and/or jb4 family updated on plan of care and expected duration. Pain level reassessed. Patient is alert, oriented x 3, equal unlabored respirations, skin warm/dry/pink. Vital Signs: 15:36 BP 129 / 90; Pulse 107; Resp 18; Temp 98.6(O); Pulse Ox 100% on R/A; Weight 63.5 kg; ll1 Height 5 ft. 0 in. (152.40 cm); Pain 10/10; 16:30 BP 125 / 78; Pulse 95; Resp 16; Pulse Ox 100% on R/A; eh3 19:00 BP 114 / 78; Pulse 104; Resp 18; Pulse Ox 100% on R/A; jb4 20:19 BP 108 / 68; Pulse 100; Resp 18; Pulse Ox 99% ; jb4 21:42 BP 105 / 67; Pulse 104; Resp 16; Pulse Ox 99% on R/A; jb4 15:36 Body Mass Index 27.34 (63.50 kg, 152.40 cm) ll1 Vitals: 16:30 Cardiac Rhythm Assessment Sinus rhythm. eh3 ED Course: 15:26 Patient arrived in ED. as 15:26 Ross Sinha MD is Private Physician. as 15:26 Dale Corcoran MD is Private Physician. as 15:35 Wilder Escobar DO is Attending Physician. ms3 15:36 Arm band placed on Patient placed in an exam room, on a stretcher. ll1 15:38 Triage completed. ll1 15:45 Patient has correct armband on for positive identification. Placed in gown. Bed in low eh3 position. Call light in reach. Side rails up X2. Client placed on continuous cardiac and pulse oximetry monitoring. NIBP monitoring applied. Door closed. Noise minimized. Warm blanket given. 16:10 Inserted saline lock: 20 gauge in right antecubital area, using aseptic technique. db Blood collected. 16:18 Alexia Jacome, RN is Primary Nurse. db 16:19 No provider procedures requiring assistance completed. db 16:48 Ptt, Activated Sent. bc6 16:48 Protime (+inr) Sent. bc6 16:48 Lactate w/ 2H reflex if indic. Sent. bc6 16:49 SARS RAPID Sent. bc6 17:25 Dale Corcoran MD is Hospitalizing Provider. ms3 22:07 Patient admitted, IV remains in place. jb4 Administered Medications: 16:55 Drug: vancoMYCIN 1 grams Route: IVPB; Infused Over: 2 hrs; Site: right antecubital; eh3 16:55 Drug: morphine 4 mg Route: IVP; Infused Over: 4 mins; Site: right antecubital; eh3 17:22 Follow up: Response: Pain is decreased eh3 17:22 Drug: Zosyn (piperacillin-tazobactam) 3.375 grams Route: IVPB; Infused Over: 60 mins; eh3 Site: right antecubital; 18:30 Drug: NS 0.9% 1000 ml Route: IV; Rate: 125 ml/hr; Site: right antecubital; eh3 Medication: 22:07 VIS not applicable for this client. jb4 Outcome: 17:26 Decision to Hospitalize by Provider. ms3 22:06 Admitted to Tele accompanied by tech, via stretcher, room 419, with chart. jb4 22:06 Condition: stable 22:06 Discharge instructions given to patient, Instructed on the need for admit, Demonstrated understanding of instructions. 22:07 Patient left the ED. jb4 Signatures: Fawn Cagle James RN RN jb4 Aditya Delaney RN RN ll1 Wilder Escobar DO DO ms3 Jocelyn Reid, ANGELIKA RN 3 Alexia Jacome RN RN Amber Woodard 6 Corrections: (The following items were deleted from the chart) 15:39 15:36 Chief complaint: Patient states: Abscess to R buttocks area for 1 weeks, getting ll1 progressively worse daily. No drainage at this time. Sent in for eval by clothing sorter MD [email or web address]
[2022-12-12] MEDS ORDERED: ACETAMINOPHEN 500 MG TAB PO PRN (17:29)
[2022-12-12] MEDS ORDERED: ONDANSETRON 4 MG/2 ML VIAL ONE (18:35)
[2022-12-12] MEDS ORDERED: NA CHLORIDE 0.9% 1,000 ML ONE (18:35)
[2022-12-12 22:32] VITALS: BMI 27.2
[2022-12-12] MEDS: ONDANSETRON 4 MG/2 ML VIAL IV PRN (22:34)
[2022-12-12] MEDS: MORPHINE 4 MG/ML SYR IV PRN (22:35)
[2022-12-12] MEDS: NA CHLORIDE 0.9% 1,000 ML IV SCH (22:41)
[2022-12-13] MEDS: PIPER TAZO 3.375 GM in NA CHLORIDE 0.9% 100 ML IV SCH ×3 (01:04→15:41)
[2022-12-13] MEDS: NA CHLORIDE 0.9% 1,000 ML IV SCH ×3 (02:37→10:00)
[2022-12-13] MEDS: ONDANSETRON 4 MG/2 ML VIAL IV PRN ×3 (02:37→16:21)
[2022-12-13] MEDS: MORPHINE 4 MG/ML SYR IV PRN ×2 (02:37→06:22)
[2022-12-13 03:39] LABS: Absolute Lymphocytes (CBC) 1.1 K/uL (0.7-4.9); Hematocrit 32.5 % (36.0-45.0); Lymphocytes % 11.1 % (15.3-44.8); MCV 83.1 fL (80-100); MPV 8.5 fL (7.6-11.3); RBC Red Blood Cell Count 3.91 M/uL (3.86-4.86)
[2022-12-13 03:54] LABS: Potassium 3.7 mmol/L (3.5-5.1)
[2022-12-13] MEDS ORDERED: INFLUENZA VACCINE (for 6+ mo) 0.5 ML DOSE IMVAC ONE (08:00)
[2022-12-13 08:10] LABS: Specific Gravity 1.025 (1.005-1.030)
[2022-12-13] MEDS ORDERED: FENTANYL CITR 100 MCG/2 ML ONE ×2 (09:46→10:14)
[2022-12-13] MEDS ORDERED: VANCOMYCIN 1.25 GM in NA CHLORIDE 0.9% 250 ML IVPB SCH (10:00)
[2022-12-13] MEDS ORDERED: propofoL 200 MG/20 ML VIAL IV ONE (10:14)
[2022-12-13] MEDS ORDERED: MIDAZOLAM HCL 2 MG/2 ML INJ ONE (10:15)
[2022-12-13] MEDS ORDERED: LIDOCAINE 2% MPF 5 ML VIAL ONE (10:15)
--- NOTE | 2022-12-13 10:39 | P.HP ---
Date of Service: 12/13/22 Chief complaint: Right buttock pain History of present Illness: Patient is a 37-year-old female who was admitted with right buttock abscess with cellulitis. Patient met SIRS criteria in the ER. Patient states that the abscess started 1 week ago. She has increased redness, swelling and pain. Patient denies fever or chills. Patient denies sore throat, runny nose, cough, headaches, dizziness or chest pain. Patient has minimal drainage from the abscess today. Review of systems: Otherwise unremarkable Past medical history: Negative Past surgical history: Cholecystectomy, x3, right ACL surgery and lumbar fusion Allergies: None Social history: Denies smoking or drinking alcohol Family history: Noncontributory Vital signs: Stable, afebrile Physical exam: Awake, alert and oriented x3 Head and neck: No masses Chest: Clear Heart: S1-S2 Abdomen: Soft, nondistended, nontender, positive bowel sounds Extremity: Neurovascular intact and nontender Neuro: Nonfocal : There is a large 10 x 6 cm indurated red, tender and warm area on the right buttocks approximately 6 cm away from the anus with central fluctuance and minimal oozing Diagnostic data: Leukocytosis with normal lactic acid Assessment: Right buttock abscess and cellulitis Plan/recommendation: Admit, n.p.o., IV fluids, IV antibiotics and to the OR for incision, drainage and debridement of right buttock abscess. Patient understands risk, benefits and alternatives and agrees to procedure. CC: Dr. Gorman's office
[2022-12-13] MEDS ORDERED: KETOROLAC 30 MG/ML INJ ONE (10:55)
[2022-12-13] MEDS ORDERED: dexAMETHasone 10 MG/ML VIAL ONE (10:55)
[2022-12-13] MEDS ORDERED: ONDANSETRON 4 MG/2 ML VIAL ONE (11:09)
[2022-12-13] MEDS ORDERED: NA CHLORIDE 0.9% 1,000 ML ONE (11:21)
--- NOTE | 2022-12-13 11:29 | P.OP ---
Date of Service: 12/13/22 Preop diagnosis: Right buttock abscess and cellulitis Postop diagnosis: Same Procedure performed: Incision, drainage and debridement of right buttock abscess Surgeon: Dale Corcoran MD Bench Assembler Electrical: None Estimated blood loss: Minimal Specimen: Pus and debridement tissue Findings: As above Anesthesia: General Complications: None Drains: None Fluids and blood products: Nonapplicable Disposition: Recovery room Operative note: Patient brought to the OR and placed in supine position. General anesthesia begun. Patient placed in the lithotomy position. Patient prepped and draped in usual sterile fashion. Marcaine 0.5% infiltrated around this 10 x 6 cm area of erythema induration warmth and central fluctuance on the right buttock. 15 blade used to make approximately a 6 x 3 cm incision. Pus under pressure evacuated. Cultures done. Necrotic tissue debrided. Pulse irrigation utilized with 2 L of saline. Wound irrigated and effluent clear. Bleeding controlled cautery. Wet-to-dry normal saline dressing change applied. Patient the procedure in stable condition taken to recovery room in good general condition. CC: Dr. Gorman's office
[2022-12-13] MEDS ORDERED: HYDROMORPHONE HCL 1 MG/ML INJ IV PRN (11:37)
[2022-12-13] MEDS ORDERED: CHLORHEXIDINE GLUCO 4% 120 ML TOP SCH (12:00)
[2022-12-13] MEDS: Ringers Lactate 1,000 ML IV SCH (12:01)
[2022-12-13] MEDS: VANCOMYCIN 1.25 GM in NA CHLORIDE 0.9% 250 ML IVPB SCH ×2 (12:01→21:33)
[2022-12-13] MEDS: MUPIROCIN 2% OINT 22GM TUBE TOP SCH (21:00)
[2022-12-14] MEDS: HYDROCODONE/APAP 7.5/325 MG TAB PO PRN (00:49)
[2022-12-14] MEDS: PIPER TAZO 3.375 GM in NA CHLORIDE 0.9% 100 ML IV SCH ×2 (00:52→07:43)
[2022-12-14] MEDS: Ringers Lactate 1,000 ML IV SCH ×5 (03:23→22:03)
[2022-12-14 04:06] LABS: Absolute Lymphocytes (CBC) 0.9 K/uL (0.7-4.9); Hematocrit 31.9 % (36.0-45.0); Lymphocytes % 5.8 % (15.3-44.8); MCV 82.8 fL (80-100); MPV 9.2 fL (7.6-11.3); RBC Red Blood Cell Count 3.85 M/uL (3.86-4.86)
[2022-12-14] MEDS: ONDANSETRON 4 MG/2 ML VIAL IV PRN ×2 (07:43→17:20)
[2022-12-14] MEDS: MUPIROCIN 2% OINT 22GM TUBE TOP SCH ×2 (07:48→20:34)
[2022-12-14] MEDS: VANCOMYCIN 1.25 GM in NA CHLORIDE 0.9% 250 ML IVPB SCH (09:00)
--- NOTE | 2022-12-14 10:17 | PN ---
Date of Progress Note: 12/14/2022 Subjective: The patient is awake, alert. Had some nausea and vomiting earlier this morning. Feels better now. Has minimal pain. Objective: Vital Signs: Stable, afebrile. Extremities: Dressing is clean, dry, intact. Laboratory Data: White count is 14.8 with a left shift. Cultures are still pending. Assessment: Status post incision, drainage, and debridement of right buttock wound. Recommendations: Continue IV antibiotics. Check cultures and adjust antibiotics accordingly. Wound care as ordered. Discharge planning. /MODL Voice ID: [id number] Report ID: [id number]
[2022-12-15] MEDS: Ringers Lactate 1,000 ML IV SCH ×4 (04:00→15:54)
[2022-12-15 04:17] LABS: Absolute Lymphocytes (CBC) 0.9 K/uL (0.7-4.9); Hematocrit 30.8 % (36.0-45.0); Lymphocytes % 8.4 % (15.3-44.8); MCV 82.5 fL (80-100); MPV 9.3 fL (7.6-11.3); RBC Red Blood Cell Count 3.74 M/uL (3.86-4.86)
[2022-12-15] MEDS: MUPIROCIN 2% OINT 22GM TUBE TOP SCH ×2 (07:31→21:00)
[2022-12-15] MEDS ORDERED: VANCOMYCIN 1 GM in NA CHLORIDE 0.9% 250 ML IVPB SCH ×2 (09:00→10:00)
[2022-12-15] MEDS ORDERED: INFLUENZA VACCINE (for 6+ mo) 0.5 ML DOSE IMVAC ONE (09:00)
[2022-12-15 09:57] LABS: Potassium 3.6 mmol/L (3.5-5.1)
[2022-12-15] MEDS ORDERED: VANCOMYCIN 1.25 GM in NA CHLORIDE 0.9% 250 ML IVPB SCH (10:00)
[2022-12-15] MEDS: DOXYCYCLINE 100 MG CAP PO SCH ×2 (10:15→21:00)
--- NOTE | 2022-12-15 10:53 | PN ---
Date of Progress Note: 12/15/2022 Subjective: The patient is awake alert. Had some nausea and vomiting yesterday. The Zosyn was stop ped because the staph organism was being grown that has slightly improved today. She is still on van comycin, but the last dose was held because of the high trough. Objective: Vital Signs: Stable. She is afebrile. Extremities: Erythema, edema, induration are markedly improved. Dressing is clean, dry, and intact. Laboratory Data: White count is down to 11.2, still with a left shift. Sensitivities have come back with MRSA and sensitive to vancomycin, Bactrim, and doxycycline. Assessment: Status post incision, drainage, and debridement of right buttock abscess. Recommendations: We will add doxycycline to the antibiotics, continue vancomycin, parenteral pain ma nagement and nausea medication as needed. Family is being taught how to change the dressing. Probab le discharge in a.m. /AI Voice ID: [id number] Report ID: [id number]
[2022-12-15] MEDS: HYDROCODONE/APAP 7.5/325 MG TAB PO PRN (15:15)
[2022-12-16] MEDS: Ringers Lactate 1,000 ML IV SCH ×3 (02:23→10:00)
[2022-12-16 03:41] LABS: Hematocrit 28.3 % (36.0-45.0); Lymphocytes % 10.8 % (15.3-44.8); MCV 82.2 fL (80-100); MPV 8.9 fL (7.6-11.3); RBC Red Blood Cell Count 3.45 M/uL (3.86-4.86)
[2022-12-16 08:57] VITALS: BP 141/75; TEMP 98.2
[2022-12-16] MEDS: MUPIROCIN 2% OINT 22GM TUBE TOP SCH (09:00)
[2022-12-16] MEDS: DOXYCYCLINE 100 MG CAP PO SCH (09:00)
[2022-12-16] MEDS: HYDROCODONE/APAP 7.5/325 MG TAB PO PRN (09:06)
[2022-12-16 09:42] VITALS: O2SAT 96
[2022-12-16] MEDS ORDERED: VANCOMYCIN 1 GM in NA CHLORIDE 0.9% 250 ML IVPB SCH (10:00)
--- NOTE | 2022-12-17 06:11 | DS ---
Date of Discharge: 12/16/2022 Admitting Diagnoses: Right buttock abscess and cellulitis. Discharge Diagnoses: Right buttock abscess and cellulitis. Hospital Course: The patient is a 37-year-old female, who was admitted with right buttock abscess, f ound to have significant leukocytosis. The patient was started on IV antibiotics and taken to the OR on Friday. Postoperatively, her white count was followed and slowly came down. Cultures were revie wed and the patient ruled out MRSA. Her pain improved her systemic symptoms improved and today she i s tolerating diet, ambulating, pain controlled with p.o. pain medications. She is afebrile. White c ount is normal. Therefore, the patient will be discharged to home. Disposition: Home. Condition: Stable. Discharge Instructions: Resume home medications and diet. Activity as tolerated. No heavy lifting. Remove outer dressing in a.m., shower, wet-to-dry normal saline dressing changes daily as instructe d. Prescription for doxycycline, Bactrim, and [place] 7.5 called in to patient's pharmacy. BANDAR/AI Voice ID: [id number] Report ID: [id number]
[2022-12-17] MEDS ORDERED: VANCOMYCIN 1 GM in NA CHLORIDE 0.9% 250 ML IVPB SCH (09:00)
== END 2022-12-16 11:18 | disposition home or self-care (01) | DRG 854 ==
LOC: ER 15:25 → ERHOLD 17:28 → 4TH 21:48
PROVIDERS: ADMIT Surgery; ATTEND Surgery
PROC: 0JB90ZZ Excision of Buttock Subcutaneous Tissue and Fascia, Open Approach (ICD-10-PCS; principal; 2022-12-13 10:30)
DX: A41.9 Sepsis, unspecified organism (principal); L03.317 Cellulitis of buttock; Z91.010 Allergy to peanuts; Z28.310 Unvaccinated for COVID-19; Z20.822 Contact with and (suspected) exposure to COVID-19
CPT/HCPCS: 36415; 80048; 80053; 80202; 81025; 82565; 82947; 83605; 85025; 85610; 85730; 87040; 87070; 87075; 87077; 87186; 87205; 87811; 88304; 93005; 94010; 96374; 96375; 99285; J1100; J1170; J2001; J2250; J2405; J2543; J2704; J3010; J3370; J7030; J7050; J7120